=== PATIENT | male | born 1965 | race Two or more races ===

== ENCOUNTER 2024-10-17 09:15 | Inpatient (IN) | payer OTHER ==
[~2024-10-17] VITALS: Ht 172.7 cm; Wt 83.2 kg
[2024-10-17 09:53] LABS: PLATELET COUNT (AUTO) 356 K/uL (150-450); RED BLOOD CELL COUNT(AUTO) 5.86 MIL/uL (4.50-5.90); RED CELL DISTRIBUTION WIDTH 15.0 % (11.5-14.5); WHITE BLOOD COUNT (AUTO) 10.3 K/uL (4.5-11.0)
[2024-10-17 09:59] LABS: CALCIUM, TOTAL 9.4 mg/dL (8.8-10.5); CREATININE 1.05 mg/dL (0.60-1.30); GLOMERULAR FILTR. RATE CALC > 60 mL/min (>60); GLUCOSE,RANDOM 112 mg/dL (70-110); SODIUM SERUM 134 mmol/L (136-145); UREA NITROGEN, BLOOD 18 mg/dL (7-18)
[2024-10-17 10:21] LABS: ASPARTATE AMINOTRANSFERASE 13.0 U/L (15-37); TOTAL PROTEIN, SERUM 8.3 g/dL (6.4-8.2)
[2024-10-17] MEDS: SODIUM CHLORIDE 0.9% 1,000 ML IV ONE (10:30)
[2024-10-17] MEDS ORDERED: IOHEXOL 350 MG/ML 100 ML VIAL ONE (10:52)
[2024-10-17] MEDS ORDERED: SODIUM CHLORIDE 0.9% 100 ML ONE (10:52)
[2024-10-17 11:05] LABS: PH,URINE DRUG SCREEN 6.5 (5.0-8.0)
[2024-10-17 11:13] LABS: ALCOHOL, URINE DRUG SCREEN NEGATIVE (NEGATIVE); AMPHET/METH SCREEN,URINE POSITIVE (NEGATIVE); BARBITURATE SCREEN, URINE NEGATIVE (NEGATIVE); CANNABINOID SCREEN,URINE POSITIVE (NEGATIVE); COCAINE SCREEN,URINE NEGATIVE (NEGATIVE); METHADONE SCREEN, URINE NEGATIVE (NEGATIVE)
[2024-10-17] MEDS ORDERED: ONDANSETRON HCL 4 MG/2 ML VIAL IVP PRN (16:00)
[2024-10-17] MEDS: CIPROFLOXACIN HCL 250 MG TABLET PO ONE (16:33)
[2024-10-17] MEDS: RINGERS SOLUTION,LACTATED 1,000 ML IV SCH (16:34)
[2024-10-17] MEDS: HEPARIN SODIUM,PORCINE 5,000 UNITS/ML VIAL SQ SCH (16:34)
[2024-10-17] MEDS: PIPERACILLIN/TAZO 3.375 GM/D5W 50 ML IV ONE (16:34)
[2024-10-17 18:01] VITALS: BP 159/94; PULSE 70; RESP 18; TEMP 98; O2SAT 100
[2024-10-17 19:29] LABS: APPEARANCE,URINE CLEAR (CLEAR); GLUCOSE, URINE (UA) NEGATIVE (NEGATIVE); LEUKOCYTE ESTERASE ,URINE NEGATIVE (NEGATIVE); NITRATE,URINE NEGATIVE (NEGATIVE); OCCULT BLOOD,URINE NEGATIVE (NEGATIVE); SPECIFIC GRAVITIY, URINE 1.040 (1.003-1.030)
[2024-10-17 19:35] VITALS: BP 147/92; PULSE 74; RESP 20; TEMP 99; O2SAT 100
[2024-10-17 20:01] LABS: SQUAMOUS EPITHELIAL CELL,UR Rare /LPF (None Seen)
[2024-10-17] MEDS: DOCUSATE SODIUM 100 MG CAPSULE PO SCH (21:00)
[2024-10-17] MEDS: ACETAMINOPHEN 325 MG TABLET PO PRN (21:20)
[2024-10-17] MEDS ORDERED: SODIUM CHLORIDE 0.9% 250 ML IV ONE (21:28)
[2024-10-17] MEDS: PIPERACILLIN/TAZO 3.375 GM/D5W 50 ML IV SCH (22:09)
[2024-10-17 22:21] LABS: LACTIC ACID 1.1 mmol/L (0.4-2.0)
[2024-10-18 04:00] VITALS: BP 133/90; PULSE 78; RESP 18; TEMP 98; O2SAT 99
[2024-10-18 07:45] VITALS: BP 149/101; PULSE 76; RESP 20; TEMP 97.7; O2SAT 100
[2024-10-18 08:28] LABS: OCCULT BLOOD STOOL SINGLE ONLY POSITIVE (NEGATIVE)
[2024-10-18 08:30] VITALS: BP 159/96
[2024-10-18 08:43] LABS: PLATELET COUNT (AUTO) 288 K/uL (150-450); RED BLOOD CELL COUNT(AUTO) 5.61 MIL/uL (4.50-5.90); RED CELL DISTRIBUTION WIDTH 14.6 % (11.5-14.5); WHITE BLOOD COUNT (AUTO) 7.0 K/uL (4.5-11.0)
[2024-10-18 08:57] LABS: CALCIUM, TOTAL 8.6 mg/dL (8.8-10.5); CREATININE 0.84 mg/dL (0.60-1.30); GLOMERULAR FILTR. RATE CALC > 60 mL/min (>60); GLUCOSE,RANDOM 85 mg/dL (70-110); SODIUM SERUM 136 mmol/L (136-145); UREA NITROGEN, BLOOD 13 mg/dL (7-18)
[2024-10-18 09:37] VITALS: BP 159/96; PULSE 76; RESP 18; TEMP 97.7; O2SAT 98
[2024-10-18 10:33] LABS: C.DIFF GDH ANTIGEN, Stool Negative (Negative)
[2024-10-18 10:34] LABS: C.DIFF TOXINS A&B, Stool Negative (Negative)
[2024-10-18] MEDS: PEG 3350/NA SULF,BICARB,CL/KCL 4000 ML SOLUTION PO ONE (18:13)
[2024-10-18 19:11] VITALS: BP 151/97; PULSE 69; RESP 18; TEMP 98.2; O2SAT 100
[2024-10-18] MEDS: PANTOPRAZOLE SODIUM 40 MG/VIAL IVP SCH (20:54)
[2024-10-18 23:10] VITALS: BP 146/104; PULSE 88; RESP 20; TEMP 99; O2SAT 100
[2024-10-19 03:47] VITALS: BP 135/84; PULSE 82; RESP 18; TEMP 98.8; O2SAT 100
[2024-10-19] MEDS ORDERED: SODIUM CHLORIDE 0.9% 1,000 ML ONE (06:16)
[2024-10-19] MEDS ORDERED: FLUMAZENIL 0.1 MG/ML 5 ML VIAL IVP ONE (06:39)
[2024-10-19] MEDS ORDERED: NALOXONE HCL 0.4 MG/ML VIAL ONE (06:39)
[2024-10-19] MEDS ORDERED: SODIUM TETRADECYL SULFATE 3% 60 MG/2 ML VIAL IVP ONE (06:40)
[2024-10-19] MEDS ORDERED: ATROPINE SULFATE 0.1 MG/ML 10 ML SYRINGE IVP ONE (06:40)
[2024-10-19] MEDS ORDERED: EPINEPHrine 1:10,000 [1 MG/10 ML] SYRINGE ONE (06:40)
[2024-10-19 07:36] LABS: GLUCOMETER DEV NAME(LOC) 4E.2; GLUCOSE,POINT OF CARE 130 MG/DL (70-110)
[2024-10-19 09:40] VITALS: BP 153/92; PULSE 62; RESP 18; TEMP 98.6; O2SAT 100
[2024-10-19] MEDS: SODIUM CHLORIDE 0.9% 1,000 ML IV ONE (09:43)
[2024-10-19 10:00] VITALS: BP 153/93; PULSE 62; RESP 19; TEMP 97.6; O2SAT 100
[2024-10-19 15:43] VITALS: BP 129/100; PULSE 85; RESP 19; TEMP 98.4; O2SAT 100
[2024-10-19 16:33] VITALS: BP 125/88; PULSE 73; RESP 18; TEMP 99.1; O2SAT 100
[2024-10-19 19:25] LABS: GLUCOMETER DEV NAME(LOC) 4E.2; GLUCOSE,POINT OF CARE 98 MG/DL (70-110)
[2024-10-19 19:59] VITALS: BP 145/85; PULSE 79; RESP 18; TEMP 97.6; O2SAT 99
[2024-10-20 04:34] VITALS: BP 129/97; PULSE 75; RESP 18; TEMP 98.1; O2SAT 98
[2024-10-20 08:00] VITALS: BP 104/83; PULSE 97; RESP 18; TEMP 98.6; O2SAT 99
[2024-10-20] MEDS ORDERED: AMLO-257 PO (12:30)
[2024-10-20] MEDS ORDERED: PANT-31 PO (12:30)
[2024-10-20] MEDS ORDERED: ACET-2247 PO (12:31)
[2024-10-20] MEDS ORDERED: AMOX-457 PO (12:32)
[2024-10-20 20:00] VITALS: BP 123/90; PULSE 87; RESP 18; TEMP 98.4; O2SAT 100
[2024-10-20] MEDS ORDERED: SODIUM CHLORIDE 0.9% 500 ML IV ONE (21:54)
[2024-10-21 04:54] VITALS: BP 108/86; PULSE 83; RESP 18; TEMP 97.9; O2SAT 96
[2024-10-21 08:00] VITALS: BP 131/95; PULSE 92; RESP 18; TEMP 97.7; O2SAT 100
[2024-10-21] MEDS: BuPROPion HCL XL 150 MG ER TABLET PO ONE (13:32)
[2024-10-21] MEDS ORDERED: BUPR-50 PO (17:03)
[2024-10-21] MEDS ORDERED: QUET100T PO (17:04)
[2024-10-22] MEDS ORDERED: BuPROPion HCL XL 150 MG ER TABLET PO SCH (09:00)
== END 2024-10-21 19:00 | DRG 392 ==
LOC: EMS 09:15 → EDH 15:58 → 6N 17:31
PROVIDERS: ADMIT Internal Medicine; ATTEND Internal Medicine
PROC: 0W3P8ZZ Control Bleeding in Gastrointestinal Tract, Via Natural or Artificial Opening Endoscopic (ICD-10-PCS; 2024-10-19)
PROC: 0DBM8ZZ Excision of Descending Colon, Via Natural or Artificial Opening Endoscopic (ICD-10-PCS; 2024-10-19)
PROC: 0DBN8ZZ Excision of Sigmoid Colon, Via Natural or Artificial Opening Endoscopic (ICD-10-PCS; 2024-10-19)
PROC: XW0H886 Introduction of Mineral-based Topical Hemostatic Agent into Lower GI, Via Natural or Artificial Opening Endoscopic, New Technology Group 6 (ICD-10-PCS; principal; 2024-10-19 07:15)
DX: A09 Infectious gastroenteritis and colitis, unspecified (principal); K55.9 Vascular disorder of intestine, unspecified; F10.139 Alcohol abuse with withdrawal, unspecified; R74.8 Abnormal levels of other serum enzymes; R74.01 Elevation of levels of liver transaminase levels; N30.90 Cystitis, unspecified without hematuria; F19.10 Other psychoactive substance abuse, uncomplicated; E86.0 Dehydration; K63.5 Polyp of colon; K64.4 Residual hemorrhoidal skin tags; K64.8 Other hemorrhoids
CPT/HCPCS: 74177; 80048; 80076; 80307; 81001; 82271; 82962; 83605; 83690; 83735; 85025; 85610; 85730; 86850; 86900; 86901; 87045; 87324; 87449; 88305; 89055; 93005; 96360; 99285; J0169; J0461; J1200; J1644; J2312; J2470; J2543; J3490; J7030; J7040; J7050; J7120; 36415-L1; 36415-TC

== ENCOUNTER 2024-10-22 16:20 | Inpatient (IN) | payer OTHER ==
[~2024-10-22] VITALS: Ht 177.8 cm; Wt 78.0 kg
[~2024-10-22 16:20] MED LIST: ACET-2247 PO; AMLO-257 PO; AMOX-457 PO; BUPR-50 PO; PANT-31 PO; QUET100T PO
[2024-10-22 16:39] VITALS: TEMP 97.4
[2024-10-22 17:11] LABS: PLATELET COUNT (AUTO) 331 K/uL (150-450); RED BLOOD CELL COUNT(AUTO) 5.60 MIL/uL (4.50-5.90); RED CELL DISTRIBUTION WIDTH 14.9 % (11.5-14.5); WHITE BLOOD COUNT (AUTO) 7.8 K/uL (4.5-11.0)
[2024-10-22 17:23] LABS: CALCIUM, TOTAL 8.9 mg/dL (8.8-10.5); CREATININE 0.76 mg/dL (0.60-1.30); GLOMERULAR FILTR. RATE CALC > 60 mL/min (>60); GLUCOSE,RANDOM 91 mg/dL (70-110); SODIUM SERUM 139 mmol/L (136-145); UREA NITROGEN, BLOOD 16 mg/dL (7-18)
[2024-10-22 17:28] LABS: ASPARTATE AMINOTRANSFERASE 33.0 U/L (15-37); CREATINE KINASE, TOTAL ONLY 28.0 U/L (39-308); TOTAL PROTEIN, SERUM 7.1 g/dL (6.4-8.2)
[2024-10-22 17:31] LABS: TROPONIN I-HIGH SENSITIVITY 4 ng/L (<76)
[2024-10-22 17:46] LABS: INFLUENZA TYPE A NEGATIVE FOR TYPE A (NEGATIVE); INFLUENZA TYPE B NEGATIVE FOR TYPE B (NEGATIVE)
[2024-10-22 17:47] LABS: COVID AG,FIA SOURCE NASAL SWAB
[2024-10-22 17:48] LABS: SARS-COV2 (COVID) ANTIGEN,FIA Positive (Negative)
[2024-10-22 20:06] VITALS: BP 127/89; PULSE 84; RESP 16; O2SAT 98
== END 2024-10-22 20:00 | disposition left against medical advice (07) | DRG 178 ==
LOC: EMS 16:20 → EDH 17:27
PROVIDERS: ADMIT Hospitalist; ATTEND Hospitalist
DX: U07.1 COVID-19 (principal); K92.2 Gastrointestinal hemorrhage, unspecified; Z53.29 Procedure and treatment not carried out because of patient's decision for other reasons
CPT/HCPCS: 71045; 80048; 80076; 82550; 83880; 84484; 85025; 85610; 85730; 86850; 86900; 86901; 87804; 93005; 93306; 99285; G0378; 36415-L1; 36415-TC

== ENCOUNTER 2024-10-26 12:24 | Emergency (ER) | payer OTHER ==
[~2024-10-26] VITALS: Ht 172.7 cm; Wt 77.3 kg
[2024-10-26] MEDS ORDERED: DEXAMETHASONE SOD PHOS 4 MG/ML 5 ML VIAL ONE (13:09)
[2024-10-26 14:22] VITALS: TEMP 98.9
[2024-10-26 14:47] LABS: PLATELET COUNT (AUTO) 471 K/uL (150-450); RED BLOOD CELL COUNT(AUTO) 6.05 MIL/uL (4.50-5.90); RED CELL DISTRIBUTION WIDTH 14.6 % (11.5-14.5); WHITE BLOOD COUNT (AUTO) 9.9 K/uL (4.5-11.0)
[2024-10-26 14:54] LABS: CALCIUM, TOTAL 9.4 mg/dL (8.8-10.5); CREATININE 0.77 mg/dL (0.60-1.30); GLOMERULAR FILTR. RATE CALC > 60 mL/min (>60); GLUCOSE,RANDOM 113 mg/dL (70-110); SODIUM SERUM 140 mmol/L (136-145); UREA NITROGEN, BLOOD 18 mg/dL (7-18)
[2024-10-26 15:05] LABS: TROPONIN I-HIGH SENSITIVITY 4 ng/L (<76)
[2024-10-26 20:10] VITALS: BP 142/74; PULSE 86; RESP 16; O2SAT 96
== END 2024-10-26 20:37 ==
LOC: EMS 12:27
DX: R55 Syncope and collapse (principal); I10 Essential (primary) hypertension; F12.90 Cannabis use, unspecified, uncomplicated; F15.90 Other stimulant use, unspecified, uncomplicated; F11.90 Opioid use, unspecified, uncomplicated; F10.90 Alcohol use, unspecified, uncomplicated; Z98.890 Other specified postprocedural states; Z79.899 Other long term (current) drug therapy; Z91.011 Allergy to milk products; Y90.9 Presence of alcohol in blood, level not specified
CPT/HCPCS: 80048; 84484; 85025; 93005; 99284; J1100; J1200